=== PATIENT | male | born 1965 | race Caucasian/White ===

== ENCOUNTER 2017-04-05 17:13 | Emergency (ER) | payer OTHER ==
--- NOTE | ~2017-04-05 | EKG ---
PATIENT: DIANA MIKE UNIT #: [id number] Ventricular Rate: 65 BPM Atrial Rate: 65 BPM P-R Interval: 148 ms QRS Duration: 98 ms Q-T Interval: 402 ms QTC Calculation(Bezet): 418 ms P [place]: 1 degrees Calculated R [place]: 69 degrees Calculated T [place]: 21 degrees Diagnosis Line: Normal sinus rhythm Diagnosis Line: Normal ECG Diagnosis Line: No previous ECGs available Diagnosis Line: Confirmed by NANCI OLIVAREZ MD ([id number]) on Diagnosis Line: 04/06/2017 7:35:04 AM INTERPRETING MD: SHER VILLEGAS
--- NOTE | ~2017-04-05 | CT16 ---
[facility] A Service [facility] RADIOLOGY TEXT RESULTS PATIENT: DIANA MIKE JR LOCATION: SED : 69 UNIT #: [id number] AGE: [address]: Chel Mendoza SEX: M ORDER DR: [id number] [place] [id number] E MR#: [id number] Acc #: [id number] NAME: DIANA MIKE JR : 1965 SEX: M STUDY DATE/TIME: 04/05/2017 19:11 UNIT: SED ROOM: STUDY DESCRIPTION: CT Angio Chest for PE Attending Physician: Chel Mendoza Pa-C Ordering Physician: Chel Mendoza Pa-C Primary Care Physician: Antonella Beltrán M.D. MEDICAL IMAGING REPORT This report is preliminary unless electronic signature is present. EXAM CTA chest with contrast, PE protocol, 04/05/2017 HISTORY 51-year-old male with chest pain beginning today. Elevated D-dimer. COMPARISON CTA chest, 04/20/2015 TECHNIQUE Helical scan performed through the chest following the timed-bolus administration of IV contrast. Coronal 3-D MIP reconstruction. Sagittal reformatted images. This CT exam was performed with one or more of the following radiation dose reduction techniques: Automatic exposure control, adjustment of mA and/or kV according to patient size, and iterative reconstruction. FINDINGS There is adequate opacification of the pulmonary arteries with no filling defects demonstrated. Thoracic aorta normal in course and caliber without dissection. Heart size normal. No pericardial effusion. No pleural effusions. No pneumothorax. No parenchymal infiltrates. Scanning through the upper abdomen is unremarkable. No acute bony abnormality. IMPRESSION 1. Negative for pulmonary emboli. 2. Negative for thoracic aortic aneurysm/dissection. 3. No acute pulmonary process. [facility] A Service [facility] RADIOLOGY TEXT RESULTS PATIENT: DIANA MIKE JR LOCATION: SED : 69 UNIT #: [id number] AGE: [address]: Chel Mendoza PAC SEX: M ORDER DR: Dictated by... Jose García M.D. THIS IS AN ELECTRONICALLY VERIFIED REPORT Jose García M.D. at 04/06/2017 10:00 AM GREG/iftikhar TD: 04/06/2017 03:06 JOB #: [id number] MEDICAL IMAGING REPORT Page 1 of 1
--- NOTE | ~2017-04-05 | CR229 ---
[facility] A Service of [facility] & [facility] RADIOLOGY TEXT RESULTS PATIENT: DIANA MIKE JR LOCATION: SED : 69 UNIT #: [id number] AGE: [address]: Chel Mendoza SEX: M ORDER DR: [id number] [address] [address] [id number] E MR#: [id number] Acc #: [id number] NAME: DIANA MIKE JR : 1965 SEX: M STUDY DATE/TIME: 04/05/2017 19:07 UNIT: SED ROOM: STUDY DESCRIPTION: CR Shoulder Min 2 View Lt Attending Physician: Chel Mendoza Pa-C Ordering Physician: Chel Mendoza Pa-C Primary Care Physician: Atnonella Beltrán M.D. MEDICAL IMAGING REPORT This report is preliminary unless electronic signature is present. EXAM Left shoulder, 04/05/2017 HISTORY 51-year-old male with left shoulder pain for 6 weeks. COMPARISON None. FINDINGS Three views of the left shoulder demonstrate no acute fracture or dislocation. Acromioclavicular joint is within expected limits. Soft tissues are unremarkable. IMPRESSION Unremarkable left shoulder. Dictated by... Jose García M.D. THIS IS AN ELECTRONICALLY VERIFIED REPORT Jose García M.D. at 04/06/2017 10:00 AM GREG/iftikhar TD: 04/06/2017 02:44 JOB #: [id number] MEDICAL IMAGING REPORT Page 1 of 1
[~2017-04-05 17:13] MED LIST: BACTRIM DS TABL1 TA1 PO; DEXAMETHASONE4 MG PO; FLAGYL PO; IBUPROFEN800 MG PO; KEFLEX500 MG PO; LEVAQUIN PO; LISINOPRIL PO; LORTAB 5/500 TA1 TA1 PO; LORTAB 7.5-5001 TAB PO; NAPROSYN500 MG PO; NAPROXEN PO; NEXIUM 24HR20 MG PO; NICOTINE TRANSD14 MG EXT; NO MEDICATIONS; PERCOCET5/325 PO; PHENERGAN PO; ULTRAM PO; VICODIN PO; XARELTO15 MG PO
[2017-04-05] MEDS ORDERED: NO MEDICATIONS (17:50)
[2017-04-05 18:44] LABS: BASOPHIL# 0.1 X10e3 (0-0.3); BASOPHIL% 1.1 % (0-2.5); EOSINOPHIL# 0.1 X10e3 (0-0.7); EOSINOPHIL% 1.4 % (0.0-7.0); HEMATOCRIT 43.8 % (38.0-50.0); LYMPHOCYTE# 2.4 X10e3 (1.0-3.5); LYMPHOCYTE% 31.3 % (17.0-45.0); MEAN CELL VOLUME 89.4 FL (83-96); MEAN CORPUSCULAR HEMOGLOBIN 30.5 PG (28-34); MEAN CORPUSCULAR HGB CONC 34.2 g/dL (30-36); MONOCYTE# 0.4 X10e3 (0-1.0); MONOCYTE% 5.1 % (3.0-12.0); NEUTROPHIL# 4.7 X10e3 (1.5-7.1); NEUTROPHIL% 61.1 % (40-75); PLATELET COUNT 142 X10e3 (140-420); RED BLOOD COUNT 4.91 X10e (3.90-5.60); RED CELL DISTRIBUTION WIDTH 13.5 % (11.0-15.5); WHITE BLOOD COUNT 7.7 X10e3 (4.0-10.5)
[2017-04-05 18:45] LABS: DIFF IND NO
[2017-04-05 18:55] LABS: POC - CKMB 1.7 ng/mL (0.0-7.9); POC - TROPONIN <0.05 ng/mL (<=0.05)
[2017-04-05 18:57] LABS: ALBUMIN SERUM 3.9 g/dL (3.5-5.0); ALKALINE PHOSPHATASE 45 U/L (32-92); ALT (SGPT) 29 U/L (10-40); AST (SGOT) 25 U/L (10-42); BILIRUBIN,TOTAL 0.5 mg/dL (0.2-2.0); BLOOD UREA NITROGEN 14 mg/dL (9-23); BUN/CREATININE RATIO 15.55; CALCIUM SERUM 8.7 mg/dL (8.4-10.2); CARBON DIOXIDE 25 mmol/L (22-31); CHLORIDE 108 mmol/L (100-111); CREATININE SERUM 0.9 mg/dL (0.6-1.4); GLOM FILT RATE Estimated 99.9 mL/min (>60); GLUCOSE FASTING 101 mg/dL (70-110); POTASSIUM 3.5 mmol/L (3.5-5.1); PROTEIN TOTAL SERUM 6.6 g/dL (6.0-8.3); SODIUM 140 mmol/L (135-145)
[2017-04-05 18:58] LABS: BILIRUBIN, DIRECT <0.1 mg/dL (0.0-0.2); BILIRUBIN,INDIRECT 0.4 mg/dL (0.0-0.9)
== END 2017-04-05 20:15 | disposition home or self-care (01) ==
LOC: SED 17:13
PROVIDERS: Physician Assistant Medical
DX: G89.29 Other chronic pain (principal); M25.512 Pain in left shoulder; F17.210 Nicotine dependence, cigarettes, uncomplicated; I10 Essential (primary) hypertension; E78.5 Hyperlipidemia, unspecified; Z88.0 Allergy status to penicillin
CPT/HCPCS: 36415; 71275; 73030; 80048; 80076; 82553; 84484; 85025; 85379; 93005; 99284; Q9967